=== PATIENT | female | born 1965 | race Caucasian/White ===

== ENCOUNTER 2018-07-22 18:36 | Observation (INO) | payer BC, SELFPAY ==
[2018-07-22 18:38] VITALS: BP 139/79; PULSE 72; RESP 15; TEMP 36.8; O2SAT 98; BMI 23.7
--- NOTE | 2018-07-22 19:41 | CT_ITS ---
STUDY: CT SOFT TISSUE NECK WITH CONTRAST REASON FOR EXAM: Female, 52 years old. Left neck swelling RADIATION DOSAGE (If Supplied By Facility): CTDIvol = ( 11.06 ) mGy, DLP = ( 331.48 ) mGycm TECHNIQUE: The patient was scanned in a multi-detector CT scanner. High resolution transaxial imaging was performed following intravenous administration of 100 IV Isovue 300. Sagittal and coronal images were reconstructed. Individualized dose optimization techniques were used for this CT. COMPARISON: None. FINDINGS: The visualized lung apices are clear. There is no cervical lymphadenopathy. There is no soft tissue mass or fluid collection. The left parotid gland is enlarged and hyperemic when compared to the right. This is consistent with left-sided parotiditis. The mastoid air cells and paranasal sinuses are clear. The visualized intracranial structures are unremarkable. There are no destructive osseous lesions. CT/Soft Tissue Neck WITH Contrast IMPRESSION: Left sided parotiditis. Electronically Signed: Levon Diaz, at 20:54 EDT Tel , Service support ,
--- NOTE | 2018-07-22 19:42 | ED.VISSUMM ---
- ER Visit Summary Date of Service: 07/22/18 Chief Complaint: Swelling of neck History of Present Illness: The patient is a 52 F who presents for swelling on the left side of her neck that occurred approximately 5 hours. Patient noted that she has a tender swelling on the left neck and it is painful. She denies any shortness of breath or pain with swallowing. She denies fever, chest pain, cough, abdominal pain, nausea or vomiting. She was recently diagnosed with a cavity and gum disease. She denies any pain with chewing or any sensation of her mouth swelling. Physical Examination: Patient is well-nourished and well-developed, afebrile and hemodynamically stable sitting in bed in no distress. Patient has obvious swelling to the left anterior neck, tender to palpation, mild overlying erythema, no fullness or tenderness over the zygoma. Oropharynx is clear with moist mucous membranes, posterior oropharynx is no erythema, exudate or swelling, uvula is midline, no sublingual edema or palpable hard mass, no submandibular edema, no lymphadenopathy, neck is supple. Heart regular rate and rhythm. No increased work of breathing. Remainder of exam unremarkable. Test Results: Abnormal Lab Results 07/22/18 07/22/18 19:45 19:45 WBC 8.3 RBC 4.58 Hgb 14.0 Hct 41.3 MCV 90.2 MCH 30.6 MCHC 33.9 RDW 12.9 RDW Differential 42.4 Plt Count 361 MPV 9.6 Immature Gran % (Auto) 0.100 Neut % (Auto) 60.1 Lymph % (Auto) 27.7 [place] % (Auto) 9.9 Eos % (Auto) 1.7 Baso % (Auto) 0.5 Absolute Neuts (auto) 5.0 Absolute Lymphs (auto) 2.29 Total Counted Not Reportable Sodium 141 Potassium 4.0 Chloride 108 H Carbon Dioxide 29.0 Anion Gap 4 L BUN 18 Creatinine 0.80 Estim Creat Clear Calc 63.48 Est GFR (MDRD) Af Amer 97 Est GFR (MDRD) Non-Af 81 BUN/Creatinine Ratio 22.5 H Glucose 96 Calcium 9.2 Clinical Impression(s) from Imaging Studies Soft Tissue Neck CT 07/22/18 19:41 IMPRESSION: Left sided parotiditis. Electronically Signed: Levon Diaz, at 20:54 EDT Tel , Service support , Emergency Department Course and Treatment: Patient was offered and declined pain medication. Because of the location of the swelling, tenderness and mild overlying erythema, a CT scan of the neck soft tissue was performed to further characterize the swelling. It was consistent with left parotitis. Patient was started on Unasyn IV for treatment and will require admission for IV antibiotics. On reevaluation, patient continued to decline any pain medication. She remained well-appearing and nontoxic. Mild increase in the amount of swelling, tempering kiln tender. Patient will be discussed with hospitalist for admission for IV antibiotics and close monitoring. Treatment Plan: [] Disposition: [] Impression: Left parotitis This note was generated with [employer] dictation software. It may contain incorrect words, spelling, and punctuation that were not noted in review of the chart prior to signing ED Disposition - Plan for ED Patient: Referrals: NOT,DEFINED [NON-STAFF] -
[2018-07-22] MEDS: 0.9% Normal Saline 1,000 ML 1000 ML IV (19:48)
[2018-07-22 20:14] LABS: BUN 18 mg/dL (7-18); EST Glomerular Filtration Rate 81 mL/min (>60); Estimated Creatinine Clearance 63.48 ml/min; Glucose 96 mg/dL (74-106)
[2018-07-22 20:15] LABS: Anion Gap 4 (5-15); BUN/Creat Ratio 22.5 RATIO (10-20); Calcium,Total 9.2 mg/dL (8.5-10.1); Chloride 108 mmol/L (98-107); Est Glom Filt Rate - Afr Amer 97 mL/min (>60); Sodium Level 141 mmol/L (136-145)
[2018-07-22 20:29] LABS: Absolute Lymphocyte Count 2.29 X10^3/ul (0.83-4.51); Basophil# 0.04 X10^3/uL; Basophil% 0.5 % (0-1); Eosinophil# 0.14 X10^3/uL; Eosinophils% 1.7 % (0-5); Hematocrit 41.3 % (37-47); Lymphocyte # 2.29 X10^3/ul (4.0); Lymphocyte % 27.7 % (19-41); Mean Corp Hgb Conc 33.9 g/gl (32-36); Mean Corpuscular Hgb 30.6 pg (27.0-32.0); Mean Corpuscular Volume 90.2 fL (81-99); Mean Platelet Vol. 9.6 fl (6.2-12.0); Monocyte# 0.82 X10^3/uL; Monocyte% 9.9 % (0-10); Neutrophil # 4.97 X10^3/uL (2.7-7.7); Neutrophil % 60.1 % (47-70); POSITIVE COUNT NO; POSITIVE DIFFERENTIAL NO; POSITIVE MORPHOLOGY NO; Platelet Count 361 K/mm3 (150-450); RBC Distribution Width CV 12.9 % (11.6-14.6); RBC Distribution Width SD 42.4 fl (35.1-43.9); Red Blood Count 4.58 M/mm3 (4.2-5.4); White Blood Count 8.3 K/mm3 (4.4-11.0)
[2018-07-22 21:14] VITALS: BP 134/78; PULSE 79; RESP 14; O2SAT 98
--- NOTE | 2018-07-22 21:52 | HP.PCM_ITS ---
Problem List (1) Parotitis Status: Acute History of Present Illness Date of Admission: 07/22/18 Chief Complaint: left neck and left jaw pain The patient is a 52 year old F with no significant previous medical history who came to the emergency department with left neck and left jaw pain that started few hours before presentation. Her pain was constant and of severity 6-7 on a scale of 1-10. It was difficult for her to eat because of pain. She denies any aggravating or ameliorating factors. Her pain was nonradiating. He denies any nausea, vomiting, fever or chills. Soft tissue neck CT at emergency department showed left-sided parotitis. Patient was empirically started on Unasyn. She was at the dentist 4 days ago and it was found that she had a ripped gum around her lower incisors. Also she had a cavity in someplace in her teeth. Past Medical History Medical History: Medical History (Last Updated 07/22/18 @ 22:34 by Fredis Dudley MD) Denies any chronic medical condition Allergies meperidine [From Demerol] Adverse Reaction (Verified 07/22/18 18:41) Nausea Home Medications: Ambulatory Orders Medication Instructions Recorded NK 07/22/18 Surgical History: appendectomy, hysterectomy, - - ; tubal ligation. Lives: Spouse/ Significant Other Smoking Status: Never smoker Alcohol: Occasional - *Family History Maternal History Items: Cancer - colon, - - She reported that her mother had low blood pressure. Paternal History Items: Diabetes, Heart Disease, Hypertension, - Review of Systems Constitutional: Denies: Chills, Fever, Weight Change HEENT: Denies: Head Aches, Sinus Congestion, Sinus Drainage Cardiovascular: Denies: Chest Pain, Palpitations Respiratory: Denies: Cough, Shortness of breath at rest, Sputum production Gastrointestinal: Denies: Abdominal Pain, Nausea, Vomiting Genitourinary: Denies: Dysuria Musculoskeletal: Denies: Joint Pain, Joint Tenderness Skin: Denies: Rash, Wounds Neurological: Denies: Numbness, Tingling, Focal weakness Psychiatric: Denies: Anxiety, Depression, Homicidal Ideations, Suicidal Ideatio ns Hematologic/ Lymphatic: Denies: Easy Bruising, Easy Bleeding VTE Information - Inpt Only VTE Present on Admission: No VTE Mechan Device Prophylaxis: None VTE Pharm Prophylaxis ordered?: Yes Patient Problems: Active and Suspected Problems Parotitis (Acute) - Physical Exam General: Alert, Oriented x3, Cooperative HEENT: Atraumatic, Normocephalic, - - Tenderness and swelling of left neck and parotid area. Oral: - - Poor dentition of left-sided teeth. Noted ribbed gum of lower incisors. Neck: Supple, No JVD, Negative Carotid Bruits Lungs: Clear to auscultation, Normal air movement Cardiovascular: Regular rate, No murmurs Abdomen: Bowel Sounds Present, Soft, Non Tender Extremities: No edema, Capillary Refill Less than 3 Seconds Skin: No rashes, No breakdown Musculoskeletal: No Tenderness to Palpation of Joints or Extremities Neurological: Neuro grossly intact Psych/Mental Status: Normal Affect, Appropriate Vital Signs Temp Pulse Resp BP Pulse Ox 98.3 F 79 14 134/78 H 98 07/22/18 18:38 07/22/18 21:14 07/22/18 21:14 07/22/18 21:14 07/22/18 21:14 Oxygen Delivery Method Room Air Weight: 56.9 kg Body Mass Index (BMI) 23.7 Laboratory Tests Past 24 Hrs 07/22/18 07/22/18 19:45 19:45 WBC 8.3 RBC 4.58 Hgb 14.0 Hct 41.3 MCV 90.2 MCH 30.6 MCHC 33.9 RDW 12.9 RDW Differential 42.4 Plt Count 361 MPV 9.6 Immature Gran % (Auto) 0.100 Neut % (Auto) 60.1 Lymph % (Auto) 27.7 [place] % (Auto) 9.9 Eos % (Auto) 1.7 Baso % (Auto) 0.5 Absolute Neuts (auto) 5.0 Absolute Lymphs (auto) 2.29 Total Counted Not Reportable Sodium 141 Potassium 4.0 Chloride 108 H Carbon Dioxide 29.0 Anion Gap 4 L BUN 18 Creatinine 0.80 Estim Creat Clear Calc 63.48 Est GFR (MDRD) Af Amer 97 Est GFR (MDRD) Non-Af 81 BUN/Creatinine Ratio 22.5 H Glucose 96 Calcium 9.2 Assessment/Plan All Active Problems Parotitis (Acute) The patient is a 52 year old F with no significant previous medical history who came to the emergency department with left neck and left jaw pain; and difficulty chewing and with radiographic evidence of left-sided parotitis. Acute left-sided parotitis. Receive Unasyn in the emergency department. Unasyn continued. Trend CBC and BMP. Discussed with patient whether she can eat regular food; soft food or clear liquids.. Patient stated that she will continue eating regular food. Regular diet ordered. She declined pain medication at the emergency department. However will order as needed Tylenol; oxycodone and morphine IV as needed if patient should need it. DVT prophylaxis Subcutaneous Lovenox. Code Visit OBSV E&M: 28039 Initial observation care L3
[2018-07-22 22:30] VITALS: BMI 23.6; BMI 23.7
[2018-07-22 22:46] VITALS: BP 163/96; PULSE 64; RESP 18; TEMP 36.6; O2SAT 96
[2018-07-23 05:02] VITALS: BP 133/81; PULSE 58; RESP 16; TEMP 36.6; O2SAT 99
[2018-07-23] MEDS: 0.9% NaCl Peripheral Flush Adult/Peds IV ×2 (05:05→12:34)
[2018-07-23 06:30] LABS: Absolute Lymphocyte Count 2.06 X10^3/ul (0.83-4.51); Absolute Neutrophil Count 2.3 X10^3/uL (2.0-7.7); Basophil# 0.05 X10^3/uL; Basophil% 0.9 % (0-1); Eosinophil# 0.18 X10^3/uL; Eosinophils% 3.4 % (0-5); Hematocrit 38.6 % (37-47); Hemoglobin 12.9 g/dl (12.0-15.0); Lymphocyte # 2.06 X10^3/ul (4.0); Mean Corp Hgb Conc 33.4 g/gl (32-36); Mean Corpuscular Hgb 30.3 pg (27.0-32.0); Mean Corpuscular Volume 90.6 fL (81-99); Mean Platelet Vol. 9.7 fl (6.2-12.0); Monocyte# 0.65 X10^3/uL; Monocyte% 12.3 % (0-10); Neutrophil # 2.34 X10^3/uL (2.7-7.7); Neutrophil % 44.4 % (47-70); Platelet Count 339 K/mm3 (150-450); RBC Distribution Width CV 13.2 % (11.6-14.6); RBC Distribution Width SD 43.3 fl (35.1-43.9); Red Blood Count 4.26 M/mm3 (4.2-5.4); White Blood Count 5.3 K/mm3 (4.4-11.0)
[2018-07-23 06:33] LABS: POSITIVE COUNT NO; POSITIVE DIFFERENTIAL NO; POSITIVE MORPHOLOGY NO
[2018-07-23 06:54] LABS: Anion Gap 9 (5-15); BUN 16 mg/dL (7-18); BUN/Creat Ratio 25.2 RATIO (10-20); Calcium,Total 8.6 mg/dL (8.5-10.1); Chloride 110 mmol/L (98-107); Creatinine, Serum 0.63 mg/dL (0.55-1.02); EST Glomerular Filtration Rate 105 mL/min (>60); Est Glom Filt Rate - Afr Amer 127 mL/min (>60); Estimated Creatinine Clearance 80.62 ml/min; Glucose 87 mg/dL (74-106); Potassium 3.9 mmol/L (3.5-5.1); Sodium Level 144 mmol/L (136-145)
[2018-07-23 07:21] VITALS: BP 142/83; PULSE 60; RESP 16; TEMP 36.5; O2SAT 97
--- NOTE | 2018-07-23 08:32 | PCM.PN.HOSP ---
Patient Problems: Active and Suspected Problems (Last Updated 07/22/18 @ 22:34 by Fredis Dudley MD) Parotitis (Acute) Vitals/I&O's: Vital Signs Temp Pulse Resp BP Pulse Ox 97.7 F L 60 16 142/83 H 97 07/23/18 07:21 07/23/18 07:21 07/23/18 07:21 07/23/18 07:21 07/23/18 07:21 Oxygen Delivery Method Room Air Weight: 56.8 kg Body Mass Index (BMI) 23.6 Intake and Output for Last 24 Hours 07/21/18 07/22/18 07/23/18 23:59 23:59 23:59 Intake Total 507 / 507 Balance 507 / 507 Laboratory Results 07/22/18 19:45: WBC 8.3, RBC 4.58, Hgb 14.0, Hct 41.3, MCV 90.2, MCH 30.6, MCHC 33.9, RDW 12.9, RDW Differential 42.4, Plt Count 361, MPV 9.6, Immature Gran % (Auto) 0.100, Neut % (Auto) 60.1, Lymph % (Auto) 27.7, [place] % (Auto) 9.9, Eos % (Auto) 1.7, Baso % (Auto) 0.5, Absolute Neuts (auto) 5.0, Absolute Lymphs (auto) 2.29, Total Counted Not Reportable 07/22/18 19:45: Sodium 141, Potassium 4.0, Chloride 108 H, Carbon Dioxide 29.0, Anion Gap 4 L, BUN 18, Creatinine 0.80, Estim Creat Clear Calc 63.48, Est GFR (MDRD) Af Amer 97, Est GFR (MDRD) Non-Af 81, BUN/Creatinine Ratio 22.5 H, Glucose 96, Calcium 9.2 07/23/18 05:30: WBC 5.3, RBC 4.26, Hgb 12.9, Hct 38.6, MCV 90.6, MCH 30.3, MCHC 33.4, RDW 13.2, RDW Differential 43.3, Plt Count 339, MPV 9.7, Immature Gran % (Auto) 0.000, Neut % (Auto) 44.4 L, Lymph % (Auto) 39.0, [place] % (Auto) 12.3 H, Eos % (Auto) 3.4, Baso % (Auto) 0.9, Absolute Neuts (auto) 2.3, Absolute Lymphs (auto) 2.06, Total Counted Not Reportable 07/23/18 05:30: Sodium 144, Potassium 3.9, Chloride 110 H, Carbon Dioxide 25.0, Anion Gap 9, BUN 16, Creatinine 0.63, Estim Creat Clear Calc 80.62, Est GFR (MDRD) Af Amer 127, Est GFR (MDRD) Non-Af 105, BUN/Creatinine Ratio 25.2 H, Glucose 87, Calcium 8.6 Current Medications Acetaminophen (Tylenol) 650 mg PO Q6H PRN PRN PRN Reason: Mild Pain (1-3)/Temp > 100.7 F Dextrose (D50w Syringe) 0 gm IV X1 PRN; Protocol PRN Reason: Hypoglycemia Enoxaparin Sodium (Lovenox) 40 mg SC DAILY@1000 DARIN Glucagon () 1 mg IM .X1 PRN PRN Reason: Hypoglycemia Ampicillin Sodium/Sulbactam (Sodium 3 gm/ Sodium Chloride) 112 mls @ 150 mls/hr IV Q6 DARIN Last Admin: 07/23/18 05:05 Dose: 150 mls/hr Morphine Sulfate () 2 mg IV Q3H PRN PRN PRN Reason: Severe pain (7-10/10) Ondansetron HCl (Zofran) 4 mg IV Q8H PRN PRN PRN Reason: NAUSEA/VOMITING Oxycodone HCl (Oxyir) 5 mg PO Q4H PRN PRN PRN Reason: Moderate Pain (4-6/10) Sodium Chloride () 5 - 15 ml IV UD PRN PRN Reason: SALINE FLUSH Last Admin: 07/23/18 05:05 Dose: 10 ml Medical Necessity - Tobacco Use Smoking Status: Never smoker Assessment/Plan All Active Problems (Last Updated 07/22/18 @ 22:34 by Fredis Dudley MD) Parotitis (Acute)
--- NOTE | 2018-07-23 09:00 | PCM.DC ---
- Discharge Diagnoses Current Active Problems: Current Active and Chronic Problems (Last Updated 07/22/18 @ 22:34 by Fredis Dudley MD) Parotitis (Acute) Reason(s) for Visit for Discharge Instructions: Left jaw pain You will use the following diet at home:: Regular Your food should be the consistency of: Regular Your liquids should be the consistency of: Regular/Thin Discharge Activity: Return to Normal Activity Call your doctor if you observe: Fever of 101 or Higher, Shortness of breath Additional Instructions: Follow-up with your dentist and primary care doctor within 1-2 weeks. Continue to maintain strict dental hygiene. Allergies/Adverse Reactions: Allergies meperidine [From Demerol] Adverse Reaction (Verified 07/22/18 22:35) Vomiting Medications to take at Discharge Amox/Clavulanate Tablet [Augmentin Tablet] 875 mg PO Q12H #12 tablet 07/23/18 The following prescriptions were given: Amox/Clavulanate Tablet [Augmentin Tablet] 875 mg PO Q12H #12 tablet Primary Care Physician: NOT,DEFINED [NON-STAFF] - Please follow up with your Primary Care Physician in: within 1-2 weeks Test Results: Test results from this visit will be discussed in further detail at your follow-up appointment, if applicable. Proposed Discharge Date: 07/23/18
--- NOTE | 2018-07-23 09:03 | DS.PCM_ITS ---
Discharge Date and Diagnosis Date of Admission: 07/22/18 Date of Discharge: 07/23/18 - Primary Discharge Diagnosis Active and Suspected Problems (Last Updated 07/22/18 @ 22:34 by Fredis Dudley MD) Parotitis (Acute) Hospital Course and Treatment Imaging Results: Clinical Impression(s) from Imaging Studies Soft Tissue Neck CT 07/22/18 19:41 IMPRESSION: Left sided parotiditis. Electronically Signed: Levon Diaz, at 20:54 EDT Tel , Service support , None Operations: None Procedures: None Summary of Care Provided: The patient is a 52 year old F with no significant past medical history admitted with left neck and jaw swelling. Patient had previously seen a dentist, and had gingivitis of the lower incisor as well as a cavity. She subsequently developed left-sided jaw and neck pain. CT scan of the neck showed left-sided parotitis. No fevers or chills. She was started on Unasyn. Patient had improved by the time she was seen the next morning. She is able to tolerate food. She was discharged to complete 1 week course of Augmentin. Subjective: On the day of discharge, patient seen and examined. Denies fever or chills - Physical Exam General: Alert, Oriented x3, Cooperative, No apparent distress HEENT: Atraumatic, PERRLA, EOMI, Normocephalic, - - left jaw swelling with tenderness and associated lymphadenopathy Oral: - - dentral caries Neck: Supple Lungs: Clear to auscultation, Normal air movement Cardiovascular: Regular rate, Regular Rhythm, Normal S1, Normal S2, No murmurs Abdomen: Bowel Sounds Present, Soft, Non Tender, Non-Distended, No Hepato- splenomegaly Extremities: No edema Skin: No rashes Musculoskeletal: No Tenderness to Palpation of Joints or Extremities Lymphatic: No Cervical, Supraclavicular, or Inguinal Adenopathy Neurological: Cranial nerves II-XII grossly intact, Neuro grossly intact Psych/Mental Status: Normal Affect, Appropriate Vital Signs Temp Pulse Resp BP Pulse Ox 97.7 F L 60 16 142/83 H 97 07/23/18 07:21 07/23/18 07:21 07/23/18 07:21 07/23/18 07:21 07/23/18 07:21 Oxygen Delivery Method Room Air Weight: 56.8 kg Body Mass Index (BMI) 23.6 Intake and Output for Last 24 Hours 07/21/18 07/22/18 07/23/18 23:59 23:59 23:59 Intake Total 507 / 507 Balance 507 / 507 Laboratory Tests Past 24 Hrs 07/22/18 07/22/18 07/23/18 19:45 19:45 05:30 WBC 8.3 5.3 RBC 4.58 4.26 Hgb 14.0 12.9 Hct 41.3 38.6 MCV 90.2 90.6 MCH 30.6 30.3 MCHC 33.9 33.4 RDW 12.9 13.2 RDW Differential 42.4 43.3 Plt Count 361 339 MPV 9.6 9.7 Immature Gran % (Auto) 0.100 0.000 Neut % (Auto) 60.1 44.4 L Lymph % (Auto) 27.7 39.0 [place] % (Auto) 9.9 12.3 H Eos % (Auto) 1.7 3.4 Baso % (Auto) 0.5 0.9 Absolute Neuts (auto) 5.0 2.3 Absolute Lymphs (auto) 2.29 2.06 Total Counted Not Reportable Not Reportable Sodium 141 Potassium 4.0 Chloride 108 H Carbon Dioxide 29.0 Anion Gap 4 L BUN 18 Creatinine 0.80 Estim Creat Clear Calc 63.48 Est GFR (MDRD) Af Amer 97 Est GFR (MDRD) Non-Af 81 BUN/Creatinine Ratio 22.5 H Glucose 96 Calcium 9.2 07/23/18 05:30 WBC RBC Hgb Hct MCV MCH MCHC RDW RDW Differential Plt Count MPV Immature Gran % (Auto) Neut % (Auto) Lymph % (Auto) [place] % (Auto) Eos % (Auto) Baso % (Auto) Absolute Neuts (auto) Absolute Lymphs (auto) Total Counted Sodium 144 Potassium 3.9 Chloride 110 H Carbon Dioxide 25.0 Anion Gap 9 BUN 16 Creatinine 0.63 Estim Creat Clear Calc 80.62 Est GFR (MDRD) Af Amer 127 Est GFR (MDRD) Non-Af 105 BUN/Creatinine Ratio 25.2 H Glucose 87 Calcium 8.6 Discharge Diet: No Restrictions Discharge Activity: Return to Normal Activity Call your doctor if you observe: Fever of 101 or Higher, Shortness of breath Home Medications: Medications to take at Discharge Amox/Clavulanate Tablet [Augmentin Tablet] 875 mg PO Q12H #12 tablet 07/23/18 Following Prescrptions Were Given to Patient: Amox/Clavulanate Tablet [Augmentin Tablet] 875 mg PO Q12H #12 tablet Primary Care Physician: NOT,DEFINED [NON-STAFF] - Please follow up with your Primary Care Physician in: within 1-2 weeks Disposition: Home Minutes spent on discharge:: 40 Patient Condition:: Stable Medical Necessity - Tobacco Use Smoking Status: Never smoker Tobacco Use: Non-smoker Meaningful Use Info Meaningful Use Diagnoses (Choose all that apply): None applicable Code Visit OBSV E&M: 97959 Observation care discharge
--- NOTE | 2018-07-23 09:03 | DCINST_ITS ---
- Discharge Diagnoses Current Active Problems: Current Active and Chronic Problems (Last Updated 07/22/18 @ 22:34 by Fredis Dudley MD) Parotitis (Acute) Reason(s) for Visit for Discharge Instructions: Left jaw pain You will use the following diet at home:: Regular Your food should be the consistency of: Regular Your liquids should be the consistency of: Regular/Thin Discharge Activity: Return to Normal Activity Call your doctor if you observe: Fever of 101 or Higher, Shortness of breath Additional Instructions: Follow-up with your dentist and primary care doctor within 1-2 weeks. Continue to maintain strict dental hygiene. Allergies/Adverse Reactions: Allergies meperidine [From Demerol] Adverse Reaction (Verified 07/22/18 22:35) Vomiting Medications to take at Discharge Amox/Clavulanate Tablet [Augmentin Tablet] 875 mg PO Q12H #12 tablet 07/23/18 The following prescriptions were given: Amox/Clavulanate Tablet [Augmentin Tablet] 875 mg PO Q12H #12 tablet Primary Care Physician: NOT,DEFINED [NON-STAFF] - Please follow up with your Primary Care Physician in: within 1-2 weeks Test Results: Test results from this visit will be discussed in further detail at your follow- up appointment, if applicable. Proposed Discharge Date: 07/23/18
[2018-07-23] MEDS: Enoxaparin 40 MG/0.4 ML Syringe SC (09:32)
[2018-07-23 11:16] VITALS: BP 146/80; PULSE 78; RESP 16; TEMP 37.1; O2SAT 98
== END 2018-07-23 14:55 | disposition home or self-care (01) ==
LOC: ED 20:32 → MS3 22:15
PROVIDERS: Admitting Provider Hospitalist; Emergency Provider Emergency Medicine; Referring Provider Hospitalist; Visit Provider Internal Medicine
DX: K11.21 Acute sialoadenitis (principal)
CPT/HCPCS: 36415; 70491; 80048; 85025; 96361; 96365; 96366; 96372; 99218; 99284; J7030; Q9967; A4216; G0378; J0295

== ENCOUNTER → 2019-12-18 10:48 | Outpatient (CLI) | payer BC, SELFPAY ==
[2018-07-22 22:30] VITALS: BMI 23.6
== END ==
PROVIDERS: PCP Registered Nurse; Referring Provider Physician Assistant; Visit Provider Physician Assistant
DX: Z20.828 Contact with and (suspected) exposure to other viral communicable diseases (principal)
CPT/HCPCS: 87635; C9803; U0003